=== PATIENT | female | born 1985 | race Caucasian/White ===

== ENCOUNTER 2019-02-14 08:53 | Outpatient (CLI) | payer BC ==
--- NOTE | 2019-02-14 10:48 | RAD ---
LEFT FOOT 3 VIEWS: HISTORY: Fracture 5th toe. COMPARISON: Comparison is made to a left foot exam 12/21/2018. That exam revealed an oblique fracture involving t he shaft of the proximal phalanx of the 5th toe. FINDINGS: Today's exam again demonstrates the obliquely oriented fracture involving the shaft of the proximal p halanx of the 5th toe. No change in alignment. There is no evidence of interval healing or callus f ormation. No other abnormality. IMPRESSION: Fracture proximal phalanx 5th toe again noted. No evidence of interval healing or callus. POS: OFF
== END 2019-02-14 08:54 | disposition home or self-care (01) ==
LOC: SCSRAD 08:53
PROVIDERS: ATTEND Family Medicine
DX: S92.502A Displaced unspecified fracture of left lesser toe(s), initial encounter for closed fracture (principal)

== ENCOUNTER 2020-03-08 11:11 | Inpatient (IN) | payer BC, OTHER ==
[2020-03-08] MEDS ORDERED: hydrALAZINE 20 MG/ML VIAL SLOW IVP PRN ×2 (11:43→12:28)
[2020-03-08] MEDS ORDERED: Bupivacaine HCl 0.5%/Epinephrine 1:200,000/PF 30 ml Vial ONE (12:06)
[2020-03-08 12:08] VITALS: BMI 36.5
[2020-03-08 12:10] LABS: Amnisure Test RUPTURE DETECTED (No Rupture)
[2020-03-08 12:11] LABS: Amnisure Internal Control QC ACCEPTABLE (ACCEPTABLE)
[2020-03-08] MEDS ORDERED: Lidocaine 1% (PF) 30 ML VIAL SC PRN (12:28)
[2020-03-08] MEDS ORDERED: Promethazine HCl 25 MG/ML VIAL IM PRN ×2 (12:28→21:48)
[2020-03-08] MEDS ORDERED: Misoprostol 200 MCG TAB PR PRN (12:28)
[2020-03-08] MEDS ORDERED: Methylergonovine 0.2 MG/ML VIAL IM PRN (12:28)
[2020-03-08] MEDS ORDERED: Ibuprofen 800 MG TAB PO PRN (12:28)
[2020-03-08] MEDS ORDERED: NS / Oxytocin 40 units/1000ml 1,000 ML IV PRN (12:28)
[2020-03-08] MEDS ORDERED: Ondansetron PF 4 MG/2 ML Vial IVP PRN ×2 (12:28→21:48)
[2020-03-08] MEDS ORDERED: Carboprost 250 MCG/ML AMP IM PRN (12:28)
[2020-03-08] MEDS ORDERED: Diphenoxylate HCl/Atropine Tablet PO PRN (12:28)
[2020-03-08] MEDS ORDERED: FLU VACC QS2020-21(6MOS UP)/PF 60 MCG/0.5 ML SYRINGE IM ONE (12:30)
[2020-03-08] MEDS ORDERED: NS w/ Oxytocin 10 units 500 ML IV SCH (12:30)
--- NOTE | 2020-03-08 12:35 | PDOC.LDHP ---
Labor and Delivery H&P Chief complaint: loss of fluid HPI: 34yo @ 39.5 by IVF implantation date, surrogate , presents for SROM. Onset of jacqueline leakage of fluid this morning at 0830, increased amount throughout the morning and now sitting in pool of fluid. No vaginal bleeding. 2 intermittent contractions since rupture. No fever/chills, n/v, ENCARNACION, vision changes. Endorses good movement. Current gestational age (weeks): 39 (39.5) Due date: 03/10/20 Grav: 5 Para: 4 (1904) OB History Details: Previous c/s for breech, #2 2 prior VBACs without complication Current complications: none Past Medical History: None Current medications: pre-grace vitamins Previous surgical history: low tranverse CS, other (hernia repair, breast augmentation) Allergies/Adverse Reactions: Allergies Allergy/AdvReac Type Severity Reaction Status Date / Time No Known Allergies Allergy Verified 08/26/19 01:44 Social history: none - Physical Exam Vital signs reviewed and normal: yes General: NAD, resting Heart: RRR Lungs: CTAB Abdomen: NTTP Extremeties: no edema FHT: category 1 (accels, no deccels), variability present [place] contractions every: none - Vaginal Exam cm dilated: 5 Effacement: 50% Station: -1 - OB Labs Blood type: O RH: positive Antibody Screen: negative HIV: negative RPR: negative HEPSAg: negative 1 hour GCT: negative GBS: negative Urine drug screen: negative Rubella: immune - Assessment L&D Assessment: term rupture in membranes - Plan Plan: admit to L&D, labor augmentation if indicated -: 34yo @ 39.5 by IVF implantation date, surrogate , presents for SROM. #Term SIUP, SROM - Surrogate - SROM @ 0830 - @ 39.5wks - GBS negative - O+ - Cat 1 strip, no contractions on monitor - SVE /-1 - h/o x2 without complications - Consented to TOLAC - Augmentation with pit, epidural if desired, cont to monitor with expectant management PCP: Roby Bland plan and documentation discussed with Dr. Hernadez, who agrees with plan.
--- NOTE | 2020-03-08 12:56 | PDOC.BPN ---
- Brief Progress Note Encounter Date: 03/08/20 Encounter Time: 12:54 OBGYN ATTENDING H&P HPI: 34 yo multip with prior VABC, desires TOLAC trial, here for SROM at 0830 this AM. GBS negative. Surrogate carrier for baby. Has iron bender here. PHYSICAL: CX 4 cm last check Aware of H&P reviewed with patient. I have seen her and reviewed strip. MONITORS: Cat 1; Needs pitocin for labor augmentation as few CTX. A/P: 1. Full term 2. GBS neg 3. Prior 4. Desires tolac: sign consent. I have reviewed with her risks and benefits. She is aware 5. Oxytocin 6. DOUGLAS for pain reflief as desired
[2020-03-08 12:59] LABS: Hemoglobin 9.8 g/dL (12.0-16.0); Mean Corpuscular HGB CONC 32.4 g/dL (32.0-36.0); Mean Corpuscular Hemoglobin 27.6 pg (27.0-31.0); Mean Corpuscular Volume 85.3 fL (78.0-98.0); Mean Platelet Volume 11.1 fL (7.4-10.4); Platelet Count 214 thou/uL (130-400); RBC Distribution Width 12.5 % (11.5-14.5); Red Blood Cell (RBC) Count 3.55 mill/uL (4.20-5.40); White Blood Cell (WBC) Count 11.2 thou/uL (4.8-10.8)
--- NOTE | 2020-03-08 13:34 | PDOC.BPN ---
- Brief Progress Note Encounter Date: 03/08/20 Encounter Time: 13:30 About 30 minutes ago, I evaluated the patient at bedside with Dr León. CX /. I ruptured the forebag. Cephalic presentation. BP was 140s/90..ASX. Follow BPs.
[2020-03-08 13:39] LABS: HBSAg Index 0.23 S/CO (0-0.99); Hep B Surf Ag Non-Reactive S/CO (NonReactive)
[2020-03-08 13:43] LABS: Syphilis Antibody Nonreactive (Nonreactive); Syphilis Antibody Index 0.03 S/CO (<1.00 Non-Reactive)
[2020-03-08 14:00] LABS: ALT (SGPT) Less than 7 U/L (8-55); AST (SGOT) 15 U/L (5-34); Albumin 3.4 g/dL (3.5-5.0); Alkaline Phosphatase 272 U/L (40-110); Anion Gap 17 mmol/L (10-20); BUN (Urea Nitrogen) 9 mg/dL (7.0-18.7); Bilirubin, Total 0.5 mg/dL (0.2-1.2); Calc. Creatinine Clearance 149 mL/min (70-130); Calcium 8.8 mg/dL (7.8-10.44); Carbon Dioxide 18 mmol/L (22-29); Chloride 106 mmol/L (98-107); Estimated GFR-MDRD 84; Globulin 2.6 g/dL (2.4-3.5); Glucose 107 mg/dL (70-105); Potassium 4.2 mmol/L (3.5-5.1); Sodium 137 mmol/L (136-145)
--- NOTE | 2020-03-08 15:33 | PDOC.LDPN ---
Labor & Delivery Progress Note - Subjective Subjective: comfortable, other (states feeling intermittent contractions about every 10-15 min) - Objective Abnormal vital signs: Single SBP in 140s General: NAD Uterine fundus: non tender SVE: /-1 FHT: category 1 (accels, no deccels), variability present (moderate) [place] contractions every: none Plan: continue plan of care -: 34yo @ 39.5 by IVF implantation date, surrogate , presents for SROM. #Term SIUP, SROM - Surrogate - SROM @ 0830 - @ 39.5wks - GBS negative - O+ - Cat 1 strip, no contractions on monitor - SVE /-1 @ admission - SVE /-1 @ 1530 - h/o x2 without complications - Consented to TOLAC - Recommended pitocin augmentation due to no cervical change. Patient's Licensed Insurance Sales Agent just arrived to bedside. Discussed recommendations and patient declines pit at this time and would like to try positional changes and work with her Licensed Insurance Sales Agent first. Will continue to monitor and recheck in 2 hours. Will recommend pit at that time if no change. Patient in agreement with plan. - will recheck and monitor BP PCP: Roby Above plan and documentation discussed with Dr. Hernadez, who agrees with plan.
--- NOTE | 2020-03-08 17:34 | PDOC.LDPN ---
Labor & Delivery Progress Note - Subjective Subjective: comfortable, other (intermittent contractions, washing machine installer at bedside. No Headache, vision changes, RUQ pain, SOB, CP) - Objective Abnormal vital signs: SBPs in 140s-150s, no severe range General: NAD, resting Uterine fundus: non tender SVE: 5/50/-1 FHT: category 1, variability present (moderate) [place] contractions every: 10-12 min Plan: continue plan of care, other (OBGYN Faculty: I have seen and reviewed care. Agree with this plan. ) -: 34yo @ 39.5 by IVF implantation date, surrogate , presents for SROM. #Term SIUP, SROM - Surrogate - SROM @ 0830 - @ 39.5wks - GBS negative - O+ - Cat 1 strip, ctx [id number] - SVE 5/50/-1 @ admission - SVE 5/50/-1 @ 1530 - SVE 5/50/-1 @ 1730 - h/o x2 without complications - Consented to TOLAC after R/B/A discussed - SBPs 140s-150s, no severe range or features. LFTs and Plts WNL. Will continue to monitor BP for severe range or clinical features. - Again, strongly recommended starting pitocin augmentation due to no cervical change and risk of infection as ruptured and increased risk of infection as time from rupture lengthens. Patient voices understanding of risks, but would like to try nipple stimulation and other positional changes for 1 additional hour and if still no change, start pitocin. Will continue continuous cardiac monitoring and recheck in 1 hour or sooner if indicated. PCP: Roby Above plan and documentation discussed with Dr. Hernadez, who agrees with plan.
--- NOTE | 2020-03-08 19:26 | PDOC.LDPN ---
Labor & Delivery Progress Note - Subjective Subjective: comfortable, painful contractions - Objective Abnormal vital signs: SBPs 140s General: NAD, breathing through contractions Uterine fundus: non tender SVE: 5/50/-1 FHT: category 1 (accels, no deccels. Intermittently on monitor, cat 1 strip when on monitor), variability present (moderate) [place] contractions every: not seen on monitor Plan: continue plan of care, other (OBGYN Faculty: Patient is not agreeable to pitocin. Risks and benefits discussed in detail. We will allow her wishes to hold off for now.) -: 34yo @ 39.5 by IVF implantation date, surrogate , presents for SROM. #Term SIUP, SROM - Surrogate - SROM @ 0830 - @ 39.5wks - GBS negative - O+ - Cat 1 strip, ctx [id number] - SVE 5/50/-1 @ admission - SVE 5/50/-1 @ 1530 - SVE 5/50/-1 @ 1730 - SVE 5/50/-1 @ 1930 - h/o x2 without complications - Consented to TOLAC after R/B/A discussed - SBPs 140s-150s, no severe range or features. LFTs and Plts WNL. Will continue to monitor BP for severe range or clinical features. - Discussed need to perform intervention to augment labor as no cervical progression now since admission. Strongly recommended pitocin augmentation. Patient still declines pitocin. Meet with day nurse, night nurse, dietary assistant, myself, and patient to discuss plan of care. Patient and dietary assistant feel continuous monitoring has limited ability to perform certain positional changes. Discussed risks of intermittent monitoring as well as continued rupture of membranes, including risk of infection and harm. Voiced understanding. Wished to proceed with intermittent monitoring with positional changes, nipple st imulation, and pressure point stimulation to induce labor. Will recheck in 2 hours and will continue to recommend pitocin if no change. Patient agrees that if no change after trying all positional changes, will start pitocin. PCP: Roby Above plan and documentation discussed with Dr. Hernadez, who agrees with plan.
[2020-03-08] MEDS: Lactated Ringer's 1,000 ML IV SCH (20:30)
[2020-03-08] MEDS ORDERED: Fentanyl 4 mcg/Bup 0.1% Cadd 100 ML ONE (20:48)
[2020-03-08] MEDS ORDERED: Labetalol HCl 100 MG/20 ML VIAL ONE (21:34)
[2020-03-08] MEDS ORDERED: Fentanyl 100 MCG/2 ML VIAL ONE (21:36)
[2020-03-08] MEDS ORDERED: Calcium Gluc 4.6 MEQ/10 ML (100 MG/ML) SLOW IVP PRN (21:46)
[2020-03-08] MEDS ORDERED: diphenhydrAMINE 50 MG/ML VIAL IVP PRN (21:48)
[2020-03-08] MEDS ORDERED: Naloxone HCl 0.4 mg/ml Vial IVP PRN ×2 (21:48)
[2020-03-08] MEDS ORDERED: Lactated Ringer's 500 ML IV PRN (21:48)
[2020-03-08] MEDS ORDERED: Acetaminophen 325 MG TAB PO PRN (21:48)
[2020-03-08] MEDS ORDERED: EPHEDRINE 25 MG/5 ML SYRINGE SLOW IVP PRN (21:48)
--- NOTE | 2020-03-08 21:48 | PDOC.BPN ---
- Brief Progress Note Encounter Date: 03/08/20 Encounter Time: 21:50 Severe range systolic at 160 and 170. Starting mag and giving labetyolol. DOUGLAS in use. Now for pitocin initiation as severe preeclampsia.
--- NOTE | 2020-03-08 21:54 | PDOC.LDPN ---
Labor & Delivery Progress Note - Subjective Subjective: painful contractions - Objective Abnormal vital signs: 2 severe range pressures at 162 and 172 General: breathing through contractions Uterine fundus: non tender SVE: 6/100/-1 FHT: category 1 (accels, no deccels), variability present (moderate) [place] contractions every: 2-4 Plan: pitocin for augmentation -: 34yo @ 39.5 by IVF implantation date, surrogate , presents for SROM. #Term SIUP, SROM - SROM @ 0830 - GBS negative, O+ - Cat 1 strip, ctx q2-4min - SVE 5/50/-1 @ admission - SVE 5/50/-1 @ 1530 - SVE 5/50/-1 @ 1730 - SVE 5/50/-1 @ 1930 - SVE 6/100/-1 @ 2130 - h/o x2 without complications - Consented to TOLAC after R/B/A discussed - Desired epidural, placed - Will place IUPC for adequate titration of pit - continuous monitoring #PreE severe features - 2 severe range pressures, treated with labetalol. Will start mag for seizure ppx - cont to monitor closely Patient in agreement with plan. PCP: Roby Above plan and documentation discussed with Dr. Hernadez, who agrees with plan.
[2020-03-08] MEDS ORDERED: Magnesium Sulfate 20 GM/WATER 500 ML BAG IVPB SCH (22:00)
[2020-03-08] MEDS ORDERED: Communication Order-Pharmacy FS SCH (22:00)
[2020-03-08] MEDS ORDERED: Fentanyl 4 mcg/Bupivacaine 0.1% Cassette 100 ML EPIDURAL SCH (22:00)
--- NOTE | 2020-03-08 22:33 | PDOC.BPN ---
- Brief Progress Note Encounter Date: 03/08/20 Encounter Time: 22:31 IUPC placed. On mag. BPs now 110s-120s s/p labetolol. Adams placed. Will cont to monitor BP. Cat 1 strip. Will initiate pit and titrate to adequate contractions. SVE 6/100/0.
[2020-03-09] MEDS: Lactated Ringer's 1,000 ML IV SCH ×2 (01:07→18:03)
--- NOTE | 2020-03-09 01:09 | PDOC.LDPN ---
Labor & Delivery Progress Note - Subjective Subjective: comfortable, painful contractions, other (no ENCARNACION, vision changes, shortness of breath, RUQ pain. Feels fatigued since started on magnesium) - Objective Vital signs reviewed and normal: yes General: NAD, breathing through contractions Uterine fundus: non tender SVE: 7/100/0 FHT: category 2 (single variable decel around 0050 just prior to epidural rebolus), variability present (minimal variability immediately after epidural bolus, moderate variability prior) [place] contractions every: 2-4 Resuscitative measures: maternal position change Plan: continue plan of care, pitocin for augmentation -: 34yo @ 39.6 by IVF implantation date, surrogate , presents for SROM. #Term SIUP, SROM - SROM @ 0830 - GBS negative, O+ - SVE 5/50/-1 @ admission - SVE 5/50/-1 @ 1530 - SVE 5/50/-1 @ 1730 - SVE 5/50/-1 @ 1930 - SVE 6/100/-1 @ 2130 - SVE 7/100/0 @ 0040 - h/o x2 without complications - Consented to TOLAC after R/B/A discussed - Epidural placed - IUPC placed - Currently Cat 2 strip after epidural bolus, prior Cat 1 - Will provide maternal positional changes and monitor closely after epidural bolus - Suspect effect from epidural bolus vs sleep cycle - MVU 125, will titrate pit as tolerated, will hold titrate at the moment due to Cat 2 strip but once return to Cat 1 will titrate for adequate ctx - continuous monitoring #PreE severe features - 2 severe range pressures, treated with labetalol. On mag for seizure ppx. Will need to continue 24 hours post delivery - continue to monitor Patient in agreement with plan. PCP: Roby Above plan and documentation discussed with Dr. Hernadez, who agrees with plan.
[2020-03-09] MEDS ORDERED: Bisacodyl 10 MG SUPP PR PRN (02:45)
[2020-03-09] MEDS ORDERED: hydrALAZINE 20 MG/ML VIAL SLOW IVP PRN (02:45)
[2020-03-09] MEDS ORDERED: Acetaminophen/Codeine 30-300mg Tablet PO PRN (02:45)
[2020-03-09] MEDS ORDERED: Milk Of Magnesia 30 ML UDCUP PO PRN (02:45)
[2020-03-09] MEDS ORDERED: Lanolin Ointment 7 GM TUBE TOP PRN (02:45)
[2020-03-09] MEDS ORDERED: Preparation H Ointment 28 GM TUBE PR PRN (02:45)
--- NOTE | 2020-03-09 03:00 | PDOC.OPDEL ---
OB Operative/Delivery Note Delivery Dr/Surgeon: Mau Assist: Satya as Faculty Pre-Delivery Diagnosis: active labor, other (TOLAC;Surrogate;PIH on Mag) Procedure/Post Delivery Dx: spontaneous vaginal delivery (: Baby at 0301. Spont cry. Prophylactic McRobert's done. Female.) Anesthesia: epidural - Findings A Sex: female - 1 min: 7 (verbal) - 5 min: 9 (verbal) - Additional Findings/Plan Placenta delivered: spontaneous (at [address]...pulliam) Repaired Obstetrical Laceration: none Estimated blood loss: 200 with placenta Compilations/Other Findings: no NC, Spont cry at cord clamp Post delivery plan: recovery in LICU (continue Magnesium Sulfate)
[2020-03-09] MEDS: NS / Oxytocin 40 units/1000ml 1,000 ML IV SCH ×2 (03:05→05:15)
--- NOTE | 2020-03-09 03:24 | PDOC.EVN ---
Event Note - Event Note Event Note: continued PP VB in LDR... Total EBL at 600ml. Cytotec in use.
--- NOTE | 2020-03-09 03:25 | PDOC.EVN ---
Event Note - Event Note Event Note: Hemabate x 1 ordered. No asthma
[2020-03-09] MEDS: Carboprost 250 MCG/ML AMP IM SCH ×2 (03:28→03:46)
[2020-03-09] MEDS ORDERED: Tranexamic Acid 1,000 MG/10 ML VIAL ONE (03:44)
--- NOTE | 2020-03-09 03:45 | PDOC.EVN ---
Event Note - Event Note Event Note: Called for PP vag bleed Dr León doing BME...no tissue retained noted. Adams in repeat hemabate Give TXA 1 gram IV (slow) Total EBL now 1000ml Check H&H and PT/PTT
--- NOTE | 2020-03-09 03:55 | PDOC.EVN ---
Event Note - Event Note Event Note: EBL with laps now at about 1800 We will give 2 units PRBCs At 0350 I removed small 5x5 cm accessory lobe of placenta from uterus...bleeding better. I discussed al this with the patient
[2020-03-09] MEDS ORDERED: Tranexamic Acid 1,000 MG in Sodium Chloride 0.9% 250 ML 250 ML IVPB SCH (04:00)
[2020-03-09 04:37] LABS: PTT 24.8 sec (22.9-36.1); Prothrombin Time 13.8 sec (12.0-14.7)
[2020-03-09] MEDS ORDERED: CEFAZOLIN 2 GM in Premix Bag 1 BAG IVPB SCH (05:00)
[2020-03-09 05:51] VITALS: BP 168/64
--- NOTE | 2020-03-09 07:07 | PDOC.PP ---
Post Progress Note Post Day #: 0 Subjective: Resting more comfortably. Initially with diarrhea, nausea, and vomiting, now improved. Lochia improved. Mild abdomen cramping. PO intake tolerated: yes Flatus: yes Ambulation: no Vital Signs (12 hours) Pulse BP 03/08/20 21:42 98 168/64 H Weight Weight 93.44 kg - Physical Examination General: NAD (resting comfortably) Cardiovascular: no m/r/g, RRR Respiratory: clear to auscultation bilaterally, non-labored breathing Abdominal: + bowel sounds, appropriately TTP Fundus firm & at: umbilicus Neurological: no gross focal deficits Psychiatric: A&Ox3 Result Diagrams: 03/09/20 03:48 03/08/20 12:48 Additional Labs: Post Labs Hep Bs Antigen Non-Reactive S/CO (NonReactive) 03/08/20 12:48 Blood Type O POSITIVE 03/08/20 12:48 - Assessment/Plan 34yo -> 5 @ 39.6 by IVF implantation date, surrogate , s/p , PPD#0 #PPD #0 s/p - @ 0301 on 03/09 - Prolonged rupture of membranes, no maternal tachycardia, afebrile, no clinical signs of infection - PPH s/p cytotec, hemabate x2, TXA with retained placenta manually extracted and now with minimal vaginal bleeding. Final QBL 2275cc - s/p 2u pRBC, Hb 9.8 -> 9.0 during PPH lab draw prior to transfusion - continue recovery and monitoring in L&D due to 24 hours on mag for preE severe features #PreE severe features - 2 severe range pressures, treated with labetalol. On mag for seizure ppx. Continue mag until 300 on 03/10 - BPs WNL with most recent 122/73, UOP 100cc/hr - continue to monitor PCP: Roby Above plan and documentation discussed with Dr. Hernadez, who agrees with plan. OBGYN Faculty: Patient seen by me. Agree. Recent PPH, continue Mag. HH next AM
[2020-03-09] MEDS: Magnesium Sulfate 20 gm/500 ml 20 GM/500 ML BAG IVPB SCH ×2 (07:31→18:02)
--- NOTE | 2020-03-09 07:58 | PDOC.BPN ---
- Brief Progress Note Encounter Date: 03/09/20 Encounter Time: 07:55 Final QBL from this AM was around 2400...now has had 2 units in and awaiting HCT
[2020-03-09] MEDS: Ferrous Sulfate 325 MG TAB PO SCH ×2 (08:09→16:12)
[2020-03-09] MEDS: Prenatal Vitamin 1 TAB PO SCH (08:10)
[2020-03-09] MEDS: Acetaminophen/Codeine 30-300mg Tablet PO PRN ×3 (08:10→16:12)
[2020-03-09] MEDS ORDERED: Simethicone Chewable 80 MG TAB PO PRN (08:15)
[2020-03-09] MEDS ORDERED: Measles/Mumps/Rubella 10 MCG/0.5 ML VIAL SC ONE (09:00)
[2020-03-09] MEDS ORDERED: Adacel (T-DAP) 0.5 ML SYRINGE IM ONE (09:00)
[2020-03-09] MEDS ORDERED: Varicella virus, LIVE 0.5 ML VIAL SC ONE (09:00)
[2020-03-09] MEDS: Ibuprofen 800 MG TAB PO SCH ×2 (12:26→22:08)
[2020-03-09 13:22] LABS: SARS-CoV-2 MS2 Positive; SARS-CoV-2 N Gene Negative; SARS-CoV-2 S Gene Negative; SARS-CoV-2 by NAA Not Detected (NotDetected); SARS-CoV-2 orf1ab Negative
[2020-03-09] MEDS: Docusate Calcium (SURFAK) 240 MG CAP PO SCH (19:09)
[2020-03-09] MEDS: Acetaminophen 500 MG TAB PO PRN (20:36)
[2020-03-10] MEDS: Ibuprofen 800 MG TAB PO SCH ×2 (06:20→14:26)
[2020-03-10 07:06] LABS: Hemoglobin 9.6 g/dL (12.0-16.0); Mean Corpuscular HGB CONC 33.7 g/dL (32.0-36.0); Mean Corpuscular Hemoglobin 29.9 pg (27.0-31.0); Mean Corpuscular Volume 88.7 fL (78.0-98.0); Mean Platelet Volume 10.9 fL (7.4-10.4); Platelet Count 183 thou/uL (130-400); RBC Distribution Width 13.2 % (11.5-14.5); White Blood Cell (WBC) Count 14.4 thou/uL (4.8-10.8)
[2020-03-10] MEDS: Acetaminophen 500 MG TAB PO PRN ×2 (07:50→14:26)
--- NOTE | 2020-03-10 08:32 | PDOC.PP ---
Post Progress Note Post Day #: 2 Subjective: no sx of anemia, minimal lochia PO intake tolerated: yes Flatus: yes Ambulation: yes Weight Weight 206 lb BP 100-130s/50-80s - Physical Examination General: NAD Respiratory: non-labored breathing Fundus firm & at: below umb Psychiatric: A&Ox3, normal affect Result Diagrams: 03/10/20 06:49 03/08/20 12:48 Additional Labs: Post Labs Hep Bs Antigen Non-Reactive S/CO (NonReactive) 03/08/20 12:48 Blood Type O POSITIVE 03/08/20 12:48 (1) PPH ( hemorrhage) Code(s): O72.1 - OTHER IMMEDIATE HEMORRHAGE Status: Acute (2) Surrogate Code(s): Z34.80 - ENCOUNTER FOR SUPRVSN OF NORMAL , UNSP TRIMESTER Status: Acute (3) Vaginal after , delivered, current hospitalization Code(s): O34.21 - MATERNAL CARE FOR SCAR FROM PREVIOUS * DO NOT USE * Status: Acute - Assessment/Plan PPD2 sp , magnesium for elevated BP right before delivery- off magnesium this AM, sp 2 U PRBC for PPH. Normal BP yesterday and today. Plan for DC today.
[2020-03-10] MEDS: Ferrous Sulfate 325 MG TAB PO SCH (08:40)
[2020-03-10] MEDS: Docusate Calcium (SURFAK) 240 MG CAP PO SCH (08:41)
[2020-03-10] MEDS: Prenatal Vitamin 1 TAB PO SCH (08:42)
== END 2020-03-10 16:50 | disposition home or self-care (01) | DRG 806 ==
LOC: L&D/OP 11:11 → L&D-LIB 13:01
PROVIDERS: ADMIT Obstetrics & Gynecology; ATTEND Obstetrics & Gynecology
PROC: 10H07YZ Insertion of Other Device into Products of Conception, Via Natural or Artificial Opening (ICD-10-PCS; 2020-03-08)
PROC: 10E0XZZ Delivery of Products of Conception, External Approach (ICD-10-PCS; principal; 2020-03-09)
PROC: 30233N1 Transfusion of Nonautologous Red Blood Cells into Peripheral Vein, Percutaneous Approach (ICD-10-PCS; 2020-03-09)
PROC: 3E0234Z Introduction of Serum, Toxoid and Vaccine into Muscle, Percutaneous Approach (ICD-10-PCS; 2020-03-09)
DX: O34.211 Maternal care for low transverse scar from previous cesarean delivery (principal); O72.1 Other immediate postpartum hemorrhage; Z37.0 Single live birth; O14.14 Severe pre-eclampsia complicating childbirth; Z20.828 Contact with and (suspected) exposure to other viral communicable diseases; Z3A.39 39 weeks gestation of pregnancy; Z23 Encounter for immunization
CPT/HCPCS: 36415; 36430; 51702; 80053; 81003; 84112; 85014; 85018; 85027; 85610; 85730; 86780; 86850; 86900; 86901; 87340; 87635; 88305; 99285; J0690; J2405; J2590; J3010; J3475; J3490; P9016; U0003